=== PATIENT | male | born 1995 | race African-American/Black ===

== ENCOUNTER 2019-05-10 11:58 | Emergency (ER) | payer SELFPAY ==
[~2019-05-10] VITALS: Ht 180.3 cm; Wt 68.0 kg
[2019-05-10 15:35] VITALS: BP 142/87
== END 2019-05-10 15:40 | disposition home or self-care (01) ==
LOC: ER 11:58
DX: K64.9 Unspecified hemorrhoids (principal); K59.00 Constipation, unspecified; R11.0 Nausea; M79.10 Myalgia, unspecified site
CPT/HCPCS: 99283

== ENCOUNTER 2020-08-10 04:26 | Emergency (ER) | payer MEDICAID ==
[~2020-08-10] VITALS: Ht 182.9 cm; Wt 79.0 kg
[2020-08-10] MEDS ORDERED: IBUPROFEN 600MG TABLET PO SCH (04:54)
[2020-08-10] MEDS ORDERED: AMOX-494 MT (05:02)
[2020-08-10] MEDS ORDERED: IBUP-2029 PO (05:02)
[2020-08-10 05:27] VITALS: BP 148/79
== END 2020-08-10 06:59 | disposition home or self-care (01) ==
LOC: ER 04:45
DX: K02.9 Dental caries, unspecified (principal)
CPT/HCPCS: 99283

== ENCOUNTER 2020-09-06 02:18 | Emergency (ER) | payer MEDICAID ==
[~2020-09-06] VITALS: Ht 188 cm; Wt 82.0 kg
[~2020-09-06 02:18] MED LIST: AMOX-494 MT; IBUP-2029 PO
[2020-09-06 02:27] VITALS: BP 128/83
[2020-09-06] MEDS ORDERED: IBUPROFEN 600MG TABLET PO SCH (02:34)
[2020-09-06] MEDS ORDERED: IBUP-2029 PO (02:38)
[2020-09-06] MEDS ORDERED: AMOX-494 PO (02:38)
== END 2020-09-06 02:56 | disposition home or self-care (01) ==
LOC: ER 02:18
DX: K02.9 Dental caries, unspecified (principal); K04.7 Periapical abscess without sinus; F31.9 Bipolar disorder, unspecified
CPT/HCPCS: 99283

== ENCOUNTER 2023-07-23 10:48 | Emergency (ER) | payer MEDICAID, OTHER ==
[~2023-07-23] VITALS: Ht 182.9 cm; Wt 73.0 kg
[~2023-07-23 10:48] MED LIST changes: +AMOX-494 PO
[2023-07-23 11:11] VITALS: TEMP 98.4; O2SAT 99
[2023-07-23 11:36] VITALS: BP 120/83; PULSE 97; RESP 16
[2023-07-23] MEDS: KETOROLAC 60MG/2ML VIAL IM STA (11:36)
== END 2023-07-23 13:47 | disposition left against medical advice (07) ==
LOC: ER 10:48
DX: S60.457A Superficial foreign body of left little finger, initial encounter (principal); X58.XXXA Exposure to other specified factors, initial encounter; Y93.89 Activity, other specified; Y92.89 Other specified places as the place of occurrence of the external cause; Y99.8 Other external cause status
CPT/HCPCS: 99281; J1885

== ENCOUNTER 2024-03-16 12:30 | Emergency (ER) | payer OTHER ==
[2024-03-16 12:37] VITALS: PULSE 64; RESP 18; O2SAT 97
[2024-03-16] MEDS ORDERED: ACETAMINOPHEN 325MG TABLET PO ONE (15:00)
[2024-03-16 15:04] LABS: HEMATOCRIT. 46.8 % (42.0-52.0); HEMOGLOBIN. 14.9 g/dL (14.0-18.0); MEAN CORPUSCULAR HEMOGLOBIN 26.9 pg (28.0-32.0); MEAN CORPUSCULAR HGB CONC 31.8 g/dL (31.0-37.0); MEAN CORPUSCULAR VOLUME 84.4 fL (80.0-94.0); MEAN PLATELET VOLUME 8.5 fl (7.4-10.4); PLATELET 286 x1000/uL (130-400); RED BLOOD CELL COUNT 5.55 mill/uL (4.7-6.1); RED CELL DISTRIBUTION WIDTH 15.4 % (11.6-14.6)
[2024-03-16 15:06] LABS: DIFFERENTIAL COMMENT 1
[2024-03-16 15:11] LABS: CHLORIDE 105 mEq/L (98-107); POTASSIUM 4.4 mEq/L (3.5-5.1); SODIUM 140 mEq/L (136-145)
[2024-03-16 15:12] LABS: CALCIUM 9.6 mg/dL (8.7-10.4); CARBON DIOXIDE 30 mEq/L (21-32)
[2024-03-16 15:17] LABS: GLUCOSE 98 mg/dL (70-105); UREA NITROGEN BLOOD 13 mg/dL (9-23)
[2024-03-16 15:18] LABS: TROPONIN I HIGH SENSITIVITY < 4 ng/L (3.0-53)
[2024-03-16 15:19] LABS: ALANINE AMINOTRANSFERASE 21 IU/L (10-49); ALBUMIN 4.3 g/dL (3.2-4.8); ASPARTATE AMINOTRANSFERASE 27 IU/L (<34); BILIRUBIN DIRECT 0.2 mg/dL (<=3.0)
[2024-03-16 15:20] LABS: BILIRUBIN TOTAL 0.6 mg/dL (0.1-1.0); PROTEIN TOTAL 7.2 g/dL (6.0-8.3)
[2024-03-16 15:21] LABS: CLARITY URINE CLEAR (CLEAR); COLOR URINE YELLOW (YELLOW); GLUCOSE URINE NEGATIVE (NEGATIVE); KETONES URINE NEGATIVE (NEGATIVE); LEUKOCYTE ESTERASE URINE NEGATIVE (NEGATIVE); NITRITE URINE NEGATIVE (NEGATIVE); OCCULT BLOOD URINE NEGATIVE (NEGATIVE); PH URINE 6.5 (4.5-8.0); PROTEIN URINE NEGATIVE (NEGATIVE); SPECIFIC GRAVITY URINE 1.024 (1.005-1.030); UROBILINOGEN URINE 0.2 E.U./dL (0.2-1.0)
[2024-03-16 15:32] LABS: PLATELET ESTIMATE NORMAL
== END 2024-03-16 19:29 | disposition home or self-care (01) ==
LOC: ER 12:30
DX: R55 Syncope and collapse (principal); K13.79 Other lesions of oral mucosa; F31.9 Bipolar disorder, unspecified
CPT/HCPCS: 36415; 71045; 80048; 80076; 81003; 84484; 85025; 93005; 99285

== ENCOUNTER 2024-04-06 12:48 | Emergency (ER) | payer OTHER ==
[~2024-04-06] VITALS: Ht 182.9 cm; Wt 86.1 kg
[2024-04-06 12:49] VITALS: O2SAT 98
[2024-04-06 13:09] VITALS: BP 150/103; PULSE 84; RESP 16; TEMP 98.2; O2SAT 99
== END 2024-04-06 17:38 | disposition left against medical advice (07) ==
LOC: ER 12:48
DX: R21 Rash and other nonspecific skin eruption (principal); Z53.21 Procedure and treatment not carried out due to patient leaving prior to being seen by health care provider

== ENCOUNTER 2024-04-19 03:35 | Emergency (ER) | payer OTHER ==
[~2024-04-19] VITALS: Ht 182.9 cm; Wt 87.0 kg
[2024-04-19 03:40] VITALS: BP 126/86; PULSE 89; RESP 16; TEMP 99.8; O2SAT 99
[2024-04-19] MEDS ORDERED: GUAI-450 MT (05:43)
== END 2024-04-19 06:08 | disposition home or self-care (01) ==
LOC: ER 03:35
DX: J06.9 Acute upper respiratory infection, unspecified (principal); B97.89 Other viral agents as the cause of diseases classified elsewhere
CPT/HCPCS: 71045; 99283

== ENCOUNTER 2024-07-13 17:30 | Emergency (ER) | payer MEDICAID, OTHER ==
[~2024-07-13] VITALS: Ht 182.9 cm; Wt 73.0 kg
[~2024-07-13 17:30] MED LIST changes: +GUAI-450 MT
[2024-07-13 17:54] VITALS: TEMP 36.6; O2SAT 98
[2024-07-13] MEDS ORDERED: HYDR28OI2 TP (19:46)
[2024-07-13 20:57] VITALS: BP 149/89; PULSE 85; RESP 19; O2SAT 99
== END 2024-07-13 20:57 | disposition home or self-care (01) ==
LOC: ER 17:30
DX: R21 Rash and other nonspecific skin eruption (principal); F31.9 Bipolar disorder, unspecified; Z79.899 Other long term (current) drug therapy
CPT/HCPCS: 99283

== ENCOUNTER 2024-07-14 13:56 | Emergency (ER) | payer MEDICAID ==
[~2024-07-14] VITALS: Ht 182.9 cm; Wt 82.0 kg
[~2024-07-14 13:56] MED LIST changes: +HYDR28OI2 TP
[2024-07-14 14:04] VITALS: BP 138/96; PULSE 88; RESP 18; TEMP 36.6; O2SAT 99
== END 2024-07-14 17:56 | disposition home or self-care (01) ==
LOC: ER 13:56
DX: R21 Rash and other nonspecific skin eruption (principal); Z79.899 Other long term (current) drug therapy
CPT/HCPCS: 99283

== ENCOUNTER 2024-07-23 13:05 | Emergency (ER) | payer MEDICAID ==
[~2024-07-23] VITALS: Ht 177.8 cm; Wt 73.0 kg
[2024-07-23 13:07] VITALS: O2SAT 99
[2024-07-23] MEDS ORDERED: AMOX1TAB16 MT (13:47)
[2024-07-23] MEDS ORDERED: PERM60CR4 TP (13:47)
[2024-07-23 13:53] VITALS: BP 137/90; PULSE 88; RESP 18; TEMP 37; O2SAT 100
== END 2024-07-23 14:02 | disposition home or self-care (01) ==
LOC: ER 13:06
DX: K04.7 Periapical abscess without sinus (principal); R21 Rash and other nonspecific skin eruption; Z79.899 Other long term (current) drug therapy; F31.9 Bipolar disorder, unspecified
CPT/HCPCS: 99283

== ENCOUNTER 2024-07-29 22:55 | Emergency (ER) | payer MEDICAID ==
[~2024-07-29] VITALS: Ht 185.4 cm; Wt 82.0 kg
[~2024-07-29 22:55] MED LIST changes: +AMOX1TAB16 MT; +PERM60CR4 TP
[2024-07-29 22:58] VITALS: BP 143/90; PULSE 67; RESP 16; TEMP 36.4; O2SAT 95
== END 2024-07-30 01:04 | disposition left against medical advice (07) ==
LOC: ER 22:55
DX: B35.4 Tinea corporis (principal)

== ENCOUNTER 2024-08-02 07:43 | Emergency (ER) | payer MEDICAID ==
[~2024-08-02] VITALS: Ht 175.3 cm; Wt 64.0 kg
[2024-08-02 07:58] VITALS: O2SAT 99
[2024-08-02 09:49] LABS: BASOPHILS % 0.5 % (0.0-2.0); EOSINOPHILS % 3.7 % (0.0-5.0); HEMATOCRIT. 43.8 % (42.0-52.0); HEMOGLOBIN. 14.1 g/dL (14.0-18.0); LYMPHOCYTES % 39.2 % (20.0-50.0); MEAN CORPUSCULAR HEMOGLOBIN 26.2 pg (28.0-32.0); MEAN CORPUSCULAR HGB CONC 32.1 g/dL (31.0-37.0); MEAN CORPUSCULAR VOLUME 81.4 fL (80.0-94.0); NEUTROPHILS % 46.6 % (40.0-76.0); PLATELET 281 x1000/uL (130-400); RED BLOOD CELL COUNT 5.38 mill/uL (4.7-6.1); RED CELL DISTRIBUTION WIDTH 15.7 % (11.6-14.6)
[2024-08-02 09:57] LABS: CHLORIDE 104 mEq/L (98-107); SODIUM 138 mEq/L (136-145)
[2024-08-02 09:58] LABS: CALCIUM 9.6 mg/dL (8.7-10.4); CARBON DIOXIDE 27 mEq/L (21-32)
[2024-08-02 10:03] LABS: CREATININE 1.1 mg/dL (0.6-1.3); GLUCOSE 120 mg/dL (70-105); UREA NITROGEN BLOOD 12 mg/dL (9-23)
[2024-08-02 10:04] LABS: ETHANOL BLOOD < 10 mg/dL (<10)
[2024-08-02 10:05] LABS: ACETAMINOPHEN < 2 ug/mL (10-30)
[2024-08-02 10:47] LABS: CLARITY URINE CLEAR (CLEAR); COLOR URINE DARK YELLOW (YELLOW); GLUCOSE URINE NEGATIVE (NEGATIVE); KETONES URINE TRACE (NEGATIVE); LEUKOCYTE ESTERASE URINE NEGATIVE (NEGATIVE); NITRITE URINE NEGATIVE (NEGATIVE); OCCULT BLOOD URINE NEGATIVE (NEGATIVE); PH URINE 6.5 (4.5-8.0); PROTEIN URINE TRACE (NEGATIVE); SPECIFIC GRAVITY URINE 1.026 (1.005-1.030)
[2024-08-02 11:10] LABS: *AMPHETAMINES SCREEN URINE PRESUMPTIVE POSITIVE (NEGATIVE); *BARBITURATES SCREEN URINE NEGATIVE (NEGATIVE); *BENZODIAZEPINES SCREEN URINE NEGATIVE (NEGATIVE); *COCAINE SCREEN URINE NEGATIVE (NEGATIVE)
[2024-08-02 11:11] LABS: CANNABINOID URINE SCREEN NEGATIVE (NEGATIVE); ECSTASY MDMA SCREEN URINE CONF.TEST INDICATED (NEGATIVE); METHADONE URINE SCREEN NEGATIVE (NEGATIVE); OPIATES URINE SCREEN NEGATIVE (NEGATIVE); PHENCYCLIDINE URINE SCREEN NEGATIVE (NEGATIVE)
[2024-08-02 12:09] LABS: MUCUS URINE 3+ /lpf (NONE/TRACE); SQUAMOUS EPITHELIAL CELL URINE RARE /lpf (RARE/1+)
[2024-08-02 12:11] LABS: RBC URINE NONE SEEN /hpf (0-2); WBC URINE 0-2 /hpf (0-2)
[2024-08-02 12:12] LABS: BACTERIA URINE TRACE
[2024-08-03 02:40] VITALS: BP 126/75; PULSE 69; RESP 16; TEMP 37.1; O2SAT 99
== END 2024-08-03 02:54 ==
LOC: ER 07:43
DX: F22 Delusional disorders (principal); F17.200 Nicotine dependence, unspecified, uncomplicated; F20.9 Schizophrenia, unspecified; F31.9 Bipolar disorder, unspecified; Z79.899 Other long term (current) drug therapy; Z20.822 Contact with and (suspected) exposure to COVID-19
CPT/HCPCS: 36415; 80048; 80305; 80307; 80320; 80329; 81003; 85025; 87426; 99285; G0480

== ENCOUNTER 2025-01-26 13:39 | Emergency (ER) | payer MEDICAID ==
[~2025-01-26] VITALS: Ht 177.8 cm; Wt 85.0 kg
[~2025-01-26 13:39] MED LIST changes: +IBUP-1455 PO; -IBUP-2029 PO; +PERM60CR20 TP; -PERM60CR4 TP
[2025-01-26 14:42] VITALS: O2SAT 80
[2025-01-26 17:47] LABS: *AMPHETAMINES SCREEN URINE PRESUMPTIVE POSITIVE (NEGATIVE); *BARBITURATES SCREEN URINE NEGATIVE (NEGATIVE); *BENZODIAZEPINES SCREEN URINE NEGATIVE (NEGATIVE); *COCAINE SCREEN URINE NEGATIVE (NEGATIVE); CANNABINOID URINE SCREEN PRESUMPTIVE POSITIVE (NEGATIVE); METHADONE URINE SCREEN NEGATIVE (NEGATIVE); OPIATES URINE SCREEN NEGATIVE (NEGATIVE); PHENCYCLIDINE URINE SCREEN NEGATIVE (NEGATIVE)
[2025-01-26 17:48] LABS: ECSTASY MDMA SCREEN URINE CONF.TEST INDICATED (NEGATIVE)
[2025-01-26 20:45] LABS: BASOPHILS % 0.7 % (0.0-2.0); EOSINOPHILS % 2.3 % (0.0-5.0); HEMATOCRIT. 44.0 % (42.0-52.0); HEMOGLOBIN. 14.4 g/dL (14.0-18.0); LYMPHOCYTES % 59.8 % (20.0-50.0); MEAN PLATELET VOLUME 7.9 fl (7.4-10.4); MONOCYTES % 9.0 % (2.0-8.0); NEUTROPHILS % 28.2 % (40.0-76.0); PLATELET 254 x1000/uL (130-400); RED BLOOD CELL COUNT 5.25 mill/uL (4.7-6.1); RED CELL DISTRIBUTION WIDTH 14.3 % (11.6-14.6)
[2025-01-26 21:03] LABS: CREATININE 1.0 mg/dL (0.6-1.3); UREA NITROGEN BLOOD 9 mg/dL (9-23)
[2025-01-27 01:35] LABS: ASPARTATE AMINOTRANSFERASE 28 IU/L (<34); BILIRUBIN DIRECT 0.2 mg/dL (<=3.0); BILIRUBIN TOTAL 0.6 mg/dL (0.1-1.0); PROTEIN TOTAL 6.6 g/dL (6.0-8.3)
[2025-01-27 03:39] LABS: TROPONIN I HIGH SENSITIVITY < 4 ng/L (3.0-53)
[2025-01-27 04:49] LABS: CLARITY URINE TURBID (CLEAR); COLOR URINE YELLOW (YELLOW); PH URINE 7.0 (4.5-8.0); SPECIFIC GRAVITY URINE 1.025 (1.005-1.030)
[2025-01-27 04:52] LABS: GLUCOSE URINE NEGATIVE (NEGATIVE); KETONES URINE NEGATIVE (NEGATIVE); LEUKOCYTE ESTERASE URINE NEGATIVE (NEGATIVE); NITRITE URINE NEGATIVE (NEGATIVE); OCCULT BLOOD URINE NEGATIVE (NEGATIVE); PROTEIN URINE NEGATIVE (NEGATIVE); UROBILINOGEN URINE 0.2 E.U./dL (0.2-1.0)
[2025-01-27 04:54] LABS: BACTERIA URINE TRACE; SQUAMOUS EPITHELIAL CELL URINE FEW /lpf (RARE/1+)
[2025-01-27 04:55] LABS: AMORPHOUS SEDIMENT URINE 3+ /lpf; RBC URINE NONE SEEN /hpf (0-2); WBC URINE NONE SEEN /hpf (0-2)
[2025-01-28 10:57] VITALS: BP 138/81; PULSE 78; RESP 16; TEMP 36.7; O2SAT 100
== END 2025-01-28 11:10 | disposition home or self-care (01) ==
LOC: ER 13:39
DX: R45.851 Suicidal ideations (principal); F31.9 Bipolar disorder, unspecified; Z79.899 Other long term (current) drug therapy; Z20.822 Contact with and (suspected) exposure to COVID-19
CPT/HCPCS: 36415; 80048; 80076; 80305; 80307; 80320; 80329; 81003; 84484; 85025; 87426; 93005; 99285; G0480